=== PATIENT | female | born 1970 | race Caucasian/White ===

== ENCOUNTER 2018-10-28 18:57 | Inpatient (IN) | payer OTHER ==
[~2018-10-28] VITALS: Ht 152.4 cm; Wt 85.4 kg
[~2018-10-28 18:57] MED LIST: LEXAPRO10 MG PO; LISINOPRIL10 MG PO; METOPROLOL TART25 M1 PO; ZOC20 PO
--- NOTE | 2018-10-28 20:58 | NUR ---
MSE COMPLETED BY DR MASTERSON
--- NOTE | 2018-10-28 20:59 | NUR ---
PT BIB FAMILY FOR C/O RLQ ABDOMINAL PAIN THAT BEGAN YESTERDAY. PT DENIES ANY FEVER. PT REPORTS NAUSEA AND VOMITING BUT HAS NOT VOMITED SINCE 1400 THIS AFTERNOON. PT DENIES ANY DIARRHEA. PT DENIES ANY TRAUMA TO THE AREA OR FALLS RECENTLY. PT DENIES ANY CHANGE IN DIET. PT IS A/O X4. PT RESPS ARE E/U. PT HAS FAMILY AT BEDSIDE. PT IS ABLE TO AMBULATE SLOWLY WITH STEADY GAIT. NO ACD NOTED
--- NOTE | 2018-10-28 21:10 | NUR ---
PT IS ABLE TO AMBULATE SLOWLY WITH ASSITANCE FROM DAUGHTER TO GIVE URINE SPECIMEN
[2018-10-28 21:11] LABS: BASOPHIL % 0.7 % (0-2); PLATELET COUNT 388 x10^3mcL (130-400)
[2018-10-28 21:15] LABS: RED CELL DISTRIBUTION WIDTH 20.3 % (11.5-14.5)
[2018-10-28 21:23] LABS: rbc morphology (normal/abnorm) ABNORMAL (NORMAL)
--- NOTE | 2018-10-28 21:32 | NUR ---
PT IS BEING WHEELED TO CT BY TECH VIA REINALDO GARCIA
[2018-10-28 21:39] LABS: CALCIUM 8.4 mg/dL (8.5-10.1); CHLORIDE SERUM 106 mmol/L (98-107); CREATININE SERUM 0.8 mg/dL (0.6-1.0); GFR1 > 60 mL/min; GLUCOSE SERUM 106 mg/dL (74-106); POTASSIUM SERUM 3.7 mmol/L (3.5-5.1); SODIUM SERUM 143 mmol/L (136-145)
--- NOTE | 2018-10-28 21:40 | NUR ---
PT RETURNED FROM CT WITH NO INCIDENCE
[2018-10-28 21:43] LABS: ALBUMIN 3.5 g/dL (3.4-5.0); ALKALINE PHOSPHATASE 92 U/L (46-116); AMYLASE 67 U/L (25-115); AST/SGOT 8 U/L (15-37); BILIRUBIN TOTAL 0.16 mg/dL (0.20-1.00); LIPASE 166 IU/L (73-393); TOTAL PROTEIN, SERUM 7.6 g/dL (6.4-8.2)
[2018-10-28 21:43] LABS: microscopic required? YES; urine erythrocyte 3+ (NEGATIVE)
[2018-10-28 21:55] LABS: ALT/SGPT 21 U/L (14-59)
--- NOTE | 2018-10-28 22:09 | NUR ---
PT RESTING IN ED GURTRES PIEDRAS WITH DAUGHTER AT BEDSIDE. PT IS A/O X4. PT RESPS ARE E/U. PT REPORTS A 8/[address] MASTERSON.
--- NOTE | 2018-10-28 22:58 | NUR ---
PT IS RESTING IN ED GURNEY. PT HAS BEEN MEDICATED PER EMAR ORDERS. PT HAS FAMIYL AT BEDSIDE. NO ACD NOTED
[2018-10-28] MEDS ORDERED: FERRALET 901 TAB (23:00)
--- NOTE | 2018-10-28 23:16 | NUR ---
PT REPORT GIVEN TO TERRANCE INIGUEZ ON MED SURG FLOOR. PT IS BEING ADMITTED TO MED SURG FLOOR ROOM 225B FOR FURTHER CARE
--- NOTE | 2018-10-28 23:24 | NUR ---
PT TAKEN TO MED SURG FLOOR ROOM 225B VIA WHEELCHAIR BY TECH. PT IS A/O X4. PT RESPS ARE E/U. NO INCIDENCE NOTED
--- NOTE | 2018-10-28 23:28 | NUR ---
RECEIVED PT FROM ED WHEELCHAIR, CAME IN DUE TO ABDOMINAL PAIN W/ NAUSEA AND VOMITING. AAOX4. DENIES HEADACHE/DIZZINESS. NO SOB NOTED. DENIES CHEST PAIN/PRESSURE. DENIES ABDOMINAL DISCOMFORT AT THIS TIME. ABDOMEN IS SOFT. VOIDS. IV SITE ON THE LAC PATENT AND INTACT. FAMILY AT BEDSIDE. SIDE RAILS UPX2. CALL LIGHT ON REACH. ENDORSED TO PRIMARY NURSE BETO FOR CONTINUITY OF CARE
[2018-10-28 23:44] VITALS: BP 139/77
[2018-10-28 23:48] VITALS: Ht 152.4 cm; Wt 85.4 kg
[2018-10-29 00:14] LABS: MAGNESIUM 2.1 mg/dL (1.8-2.4); PHOSPHOROUS 3.2 mg/dL (2.5-4.9)
[2018-10-29 00:24] LABS: CHOLESTEROL/HDL RATIO 5.4
[2018-10-29 00:27] LABS: FREE T4 1.01 ng/dL (0.76-1.46); T4(THYROXINE) 8.2 ug/dL (4.7-13.3)
--- NOTE | 2018-10-29 01:28 | NUR ---
PT SEEN SLEEPING IN BED. DAUGHTER IS AT BEDSIDE. BREATHING IS EVEN AND UNLABORED. NO ACUTE DISTRESS NOTED AT THIS TIME. WILL CONTINUE TO MONITOR.
--- NOTE | 2018-10-29 01:32 | NUR ---
PT SEEN SLEEPING IN BED. DAUGHTER IS AT BEDSIDE. BREATHING IS EVEN AND UNLABORED. NO ACUTE DISTRESS AT THIS TIME. WILL CONTINUE TO MONITOR.
--- NOTE | 2018-10-29 06:25 | NUR ---
PT SEEN RESTING IN BED. DAUGHTER IS AT BEDSIDE. BREATHING IS EVEN AND UNLABORED. PT DENIES PAIN OR DISCOMFORT. IV CATH IS INTACT AND FLUSHING WELL. WILL ENDORSE CONTINUITY OF CARE TO DAYSHIFT NURSE.
[2018-10-29 06:30] VITALS: BP 112/54
[2018-10-29 07:05] LABS: BASOPHIL % 0.6 % (0-2); PLATELET COUNT 326 x10^3mcL (130-400)
--- NOTE | 2018-10-29 07:08 | NUR ---
RECEIVED PATIENT AWAKE/ALERT IN BED, NO ACUTE DISTRESS NOTED, DENIED PAIN AT THIS TIME. NPO. M/S PATIENT. IV TO LAC INFUSING WELL, NO REDNESS OR SWELLING NOTED. POC EXPLAINED. DTR REMAIN AT BEDSIDE. CALL LIGHT IN REACH.
[2018-10-29 07:13] LABS: RED CELL DISTRIBUTION WIDTH 20.9 % (11.5-14.5)
--- NOTE | 2018-10-29 07:25 | NUR ---
ENDORSED CONTINUITY OF CARE TO [facility]
[2018-10-29 08:20] LABS: CALCIUM 7.4 mg/dL (8.5-10.1); CHLORIDE SERUM 111 mmol/L (98-107); CREATININE SERUM 0.6 mg/dL (0.6-1.0); GFR1 > 60 mL/min; GLUCOSE SERUM 87 mg/dL (74-106); MAGNESIUM 2.1 mg/dL (1.8-2.4); PHOSPHOROUS 3.4 mg/dL (2.5-4.9); POTASSIUM SERUM 3.9 mmol/L (3.5-5.1); SODIUM SERUM 144 mmol/L (136-145)
--- NOTE | 2018-10-29 09:09 | NUR ---
PATIENT AWAKE/ALERT IN BED WITH DTR SNEHA, PER DTR SURGEON Colton GELLER CAME IN THIS MORNING AND TALK TO THEM ABOUT THE APPENDECTOMY, PATIENT SIGNED CONSENT FOR LAPAROSCOPIC POSSIBLE OPEN APPENDECTOMY. NO FURTHER QUESTIONS.
[2018-10-29 09:31] VITALS: BP 111/60
--- NOTE | 2018-10-29 09:41 | NUR ---
PATIENT BACK FROM [facility] IN BED, C/O ESCOTO 01/29. TYLENOL 2 TABS ADMINISTERED, PATIENT TOLERATED WELL. NEW IVF BAG REPLACED. NEEDS MET. CONT TO MONITOR.
--- NOTE | 2018-10-29 10:51 | NUR ---
OR NURSE AT BEDSIDE GAVE BEDSIDE REPORT, CHRIS WIPE GAVE TO OR NURSE. IV SALINE LOCK, NO REDNESS OR SWELLING NOTED. PATIENT TRANSFER VIA GUERNEY WITH OR NURSE AND FAMILY MEMBERS ACCOMPANIED.
--- NOTE | 2018-10-29 13:00 | NUR ---
RECEIVED PATIENT FROM [facility], AWAKE/ALERT. DENIES PAIN AT THIS TIME. ASSISTING TO BRP SLIGHT DIZZINESS BUT ABLE TO WALK WITH ASSIST, VOIDED W/O DIFFICULTY. PROVIDE TOPHER PAD PATIENT ON HER MENSE. ABDOMEN X 3 INCISION COVER W/ BANDAIDS. CDI. FAMILY MEMBERS AT BEDSIDE. CALL LIGHT IN REACH.
[2018-10-29 13:41] VITALS: BP 119/68
--- NOTE | 2018-10-29 14:45 | NUR ---
ASSISTING PATIENT TO BRP, VOIDED. BACK TO BED TOLERATED MILD PAIN. UNASYN IVPB INFUSING TO LAC IV PATENT. NO REDNESS OR SWELLING NOTED. IN THE ROOM SPOKE WITH PATIENT AND DTR TRANSLATE. ICE CHIPS GIVEN. CONT TO MONITOR.
[2018-10-29 16:54] VITALS: BP 128/69
--- NOTE | 2018-10-29 18:43 | NUR ---
PATIENT RESTING IN BED WITH AT BEDSIDE, PATIENT TOLERATED REGULAR DIET. NO C/O NAUSEA. NO C/O PAIN. CONT TO MONITOR.
[2018-10-29 22:14] VITALS: BP 126/68
--- NOTE | 2018-10-29 22:21 | NUR ---
[facility]. PT SEEN RESTING IN BED. A/O X 4. SAMI SPEAKING. MED SURG PT. PERIPHERAL PULSES ARE PALPABLE. NO EDEMA NOTED. LUNG SOUNDS CTA. ON ROOM AIR. O2 SAT- 98. BOWEL SOUNDS ACTIVE IN ALL QUADRANTS. 3 SX INCISIONS DRESSED WITH BANDAIDS. CDI. VOIDS FREELY. AMBULATES INDEPENDENTLY. IV SITE TO LAC INTACT. NO S/S OF SWELLING, REDNESS OR INFILTRATION. WILL CONTINUE TO MONITOR.
[2018-10-29 22:37] LABS: T3 TOTAL 1.2 ng/mL
--- NOTE | 2018-10-30 01:35 | NUR ---
PT SEEN ASLEEP. BREATHING IS EVEN AND UNLABORED. NO ACUTE DISTRESS NOTED AT THIS TIME. WILL CONTINUE TO MONITOR.
[2018-10-30 05:11] VITALS: BP 137/82
--- NOTE | 2018-10-30 05:41 | NUR ---
PT SEEN RESTING IN BED. BREATHING IS EVEN AND UNLABORED. IV CATH TO LAC IS PATENT AND INFUSING NS AT 120CC/HR. NO S/S OF SWELLING, REDNESS OR INFILTRATION. PT COMPLAINED OF MILD PAIN, MEDICATED PER EMAR. WILL ENDORSE CONTINUITY OF CARE TO DAYSHIFT NURSE.
--- NOTE | 2018-10-30 07:12 | NUR ---
ENDORSED CARE TO DAYSHIFT NURSEDINORAH
[2018-10-30] MEDS ORDERED: IBUPROFEN400 MG PO (08:13)
[2018-10-30 09:55] VITALS: BP 145/78
--- NOTE | 2018-10-30 10:35 | NUR ---
RECIEVED PATIENT ALERT AND ORIENTED TIMES FOUR. PATIENT HAS BEEN OOB AND TOLERATE THE DIET OFFERED AND DENIE MCKINNEY ACUTE PAIN AT THIS TIME. DRESSING TIME THREE TO THE ABDOMEN WITH CLEAR BANDAIDS. PATIENT AHS HYPOACTIV EBOWEL SOUNDS AND HAS PASSED GAS TJHIS AM AND URINATING WITHOUT PROBLEMS. LUNGS ARE CLERA AND ENCOURAGE TO DEEP BREATH OFTEN. SHE AHS PULES PALPABLE TO ALL EXTREMITES AND NO EDEMA NTOED. NO FEVER AND NO ADVERSE REACTION TO THE UNASYN GIVEN. VITALS AT HTIS TIME AT 97.9, 84, 18, 145/78, 97% ON ROOM AIR. WILL CONTINUE TO MONITOR INDICATED.
[2018-10-30] MEDS ORDERED: NORCO1 TA1 PO (11:18)
[2018-10-30 11:25] VITALS: BP 145/78
[2018-10-30 11:27] VITALS: BP 145/78
--- NOTE | 2018-10-30 11:42 | NUR ---
SEEN BY THE SURGEON AND PLAN OF CARE DISCUSEED. PATIENT WITH DISCHARGE ORDERS STAFF IS AWARE AND DISCHAGE ORDERS AND PAPERWORK STARTED INDICATED.
--- NOTE | 2018-10-30 14:10 | NUR ---
GAVE DISCHARGE PAPERWORK AND THE PRESCRIPTION FOR [place]CO ORDERED. PATEINT O FOLLOW UP WITH THE SURGEON AND THE PRIMARY INDICATED. GAVE SUPPLIES FOR CARE OF THE WOUND SITES AT [facility]. REMOVED THE IV AND AWAITING FAMILY TO TAKE HER HOME. NO DISTRESS AT THIS TIME.
== END 2018-10-30 14:30 | disposition home or self-care (01) | DRG 234 ==
LOC: ED 18:57 → MU 22:24
PROVIDERS: Emergency Medicine; Surgery; ADMIT Internal Medicine
PROC: 0DTJ4ZZ Resection of Appendix, Percutaneous Endoscopic Approach (ICD-10-PCS; principal; 2018-10-29 10:30)
DX: K35.80 Unspecified acute appendicitis (principal); N17.0 Acute kidney failure with tubular necrosis; D50.9 Iron deficiency anemia, unspecified; E78.5 Hyperlipidemia, unspecified; N83.201 Unspecified ovarian cyst, right side; E83.51 Hypocalcemia; R31.9 Hematuria, unspecified; Z87.891 Personal history of nicotine dependence; Z83.3 Family history of diabetes mellitus
CPT/HCPCS: 84439; J0295; J0330; J0690; J1170; J1885; J2405; J3010; J3490; J7030; Q0092